=== PATIENT | male | born 1990 | race Two or more races ===

== ENCOUNTER → 2018-02-28 | Emergency (ER) | payer OTHER ==
[~2018-02-28] VITALS: Ht 193 cm; Wt 117.9 kg
[~2018-02-28] MED LIST: DOLOGESIC 500-1 EACH PO; PRISTIQ ER100 MG
== END | disposition home or self-care (01) ==
LOC: ER 20:08
DX: K52.9 Noninfective gastroenteritis and colitis, unspecified (principal); E86.0 Dehydration; R50.9 Fever, unspecified